=== PATIENT | female | born 1990 | race Caucasian/White ===

== ENCOUNTER 2016-11-25 20:28 | Emergency (ER) | payer BC, MEDICAID ==
[2016-11-25 20:46] VITALS: BP 121/81
[2016-11-25] MEDS ORDERED: diphenhydrAMINE 50 MG/ML SDV IM ONE (20:50)
[2016-11-25] MEDS ORDERED: Ketorolac 60 MG/2 ML SDV IM ONE (20:51)
--- NOTE | 2016-11-28 07:53 | ER ---
Date of Service: 11/25/2016 SUBJECTIVE: Irina presents to the emergency room with complaints of migraine headache. She states this is similar to migraines that she has experienced in the past. She states that she states that she woke with a migraine early this morning. She states that she has not had any recent head trauma. She states again that the quality of this migraine is similar to what she has experienced in the past. She states that she only gets maybe 1 or 2 migraines a month and is currently not on any rescue medications for her migraine headaches. PAST MEDICAL HISTORY: Migraines. MEDICATIONS: Tylenol with caffeine for migraines. ALLERGIES: Sulfa. REVIEW OF SYSTEMS: Denies any numbness or tingling in her extremities. No difficulties with speech or ambulation. No blurred vision. She states that she does have photophobia. She again woke with a migraine so was unable to assess if she did have a pre migraine aura. Denies any neck stiffness. PHYSICAL EXAMINATION: General: This is a 25-year-old female patient, in no acute distress. Vital Signs: Blood pressure is 121/81, pulse rate is 98, temperature is 37.5, pulse or O2 saturations 98%, respiratory rate is 20. Skin: Warm, pink, and dry. HEENT: Head is normocephalic, atraumatic. Eyes, PERRLA. Extraocular movements are intact. Ears, TMs are clear. Mouth, oral mucosa is moist. Lungs: Clear to auscultation. Heart: Regular rate and rhythm. Abdomen: Soft and nontender. There is no hepatosplenomegaly or masses noted. Extremities: Without edema. Neurologic: She is alert and oriented, answers all questions appropriately. Her speech is fluent. Her gait is within normal limits. She has no pronator drift. Romberg is negative. She has 5/5 strength in both her upper and lower extremities. Patellar and brachioradialis reflexes are 2+. No other focal neurologic symptoms noted. EMERGENCY ROOM COURSE: The patient was given injection of Thorazine 25 mg, Benadryl 50 mg, and Toradol 60 mg IM. She was observed for approximately a 0.5 hour and stated that her migraine was improving significantly. She remained stable my care in the emergency room. ASSESSMENT: Migraine headache. PLAN: The patient will be discharged. I did give her a prescription for some Imitrex to see if this does help as an abortive medication. She was instructed to take 50 mg at onset of migraine and repeat once in 1 hour if no resolution of her symptoms. All questions were MWK: 11/26/2016 07:18:27 MODL: 11/26/2016 11:53:46 /[id number]
== END 2016-11-25 21:45 | disposition home or self-care (01) ==
LOC: VM.ED 20:28
DX: G43.909 Migraine, unspecified, not intractable, without status migrainosus (principal); Z88.2 Allergy status to sulfonamides
CPT/HCPCS: 96372; 99283; J1200; J1885; J3230

== ENCOUNTER 2017-09-14 06:51 | Emergency (ER) | payer BC, MEDICAID ==
[2017-09-14 06:58] VITALS: BP 134/74
[2017-09-14] MEDS ORDERED: Sodium Chloride 0.9% 10 ML Syringe FLUSH PRN (07:11)
[2017-09-14] MEDS ORDERED: Sodium Chloride 0.9% 1,000 ML IV ONE (07:12)
[2017-09-14] MEDS ORDERED: Ondansetron 4 MG/2 ML SDV IVPUSH ONE (07:12)
[2017-09-14] MEDS ORDERED: HYDROmorphone 1 MG/ML Syringe IVPUSH ONE (07:12)
[2017-09-14] MEDS ORDERED: Ketorolac 30 MG/ML SDV IVPUSH ONE (07:44)
[2017-09-14 07:54] LABS: CHLORIDE,CL 107 mmol/L (98-107); SODIUM,NA 140 mmol/L (136-145)
[2017-09-14] MEDS ORDERED: Iopamidol 612 MG/ML 100 ML Bottle IVPUSH ONE (08:08)
--- NOTE | 2017-09-14 14:51 | EDM.PDOC ---
ED HPI GENERAL MEDICAL PROBLEM - General Chief Complaint: General Stated Complaint: right upper abd pain Time Seen by Provider: 09/14/17 07:00 Source of Information: Reports: Patient History Limitations: Reports: No Limitations - History of Present Illness INITIAL COMMENTS - FREE TEXT/NARRATIVE: Pt. presents to ER with complaints of epigastric/RUQ abdominal pain. Pt. states that she woke with the pain this AM. she states that she has not been experiencing any fever or chills. No N/V/D. She has had her gallbladder removed. She denies any substernal chest pain or shortness of breath. Pt. has not taken anything for the pain. She denies any jaundice. No bloody stools. Pt. was started on amoxicillin and solu medrol last week at [facility]. Onset: Today Onset Date: 09/14/17 Duration: Constant Location: Reports: Abdomen Quality: Reports: Ache, Sharp Severity: Severe Associated Symptoms: Reports: Nausea/Vomiting Right Upper Abdomen Pain Score (Numeric/FACES): 1 - Related Data Allergies Allergy/AdvReac Type Severity Reaction Status Date / Time Sulfa (Sulfonamide Allergy Rash Verified 09/14/17 06:52 Antibiotics) Home Meds: Home Meds Acetaminophen [Tylenol Extra Strength] 1,000 mg PO Q6H PRN 09/14/17 [History] Amoxicillin/Clavulanate K [Augmentin 500-125 MG] 1 tab PO BID 09/14/17 [History] Benzonatate [Tessalon Perle] 100 mg PO TID 09/14/17 [History] Codeine/guaiFENesin [guaiFENesin-Codeine Syrup] 5 ml PO TID PRN 09/14/17 [ History] Etonogestrel [Nexplanon] 68 mg SQ ASDIRECTED 09/14/17 [History] predniSONE [Prednisone] 1 tab PO TID 09/14/17 [History] Past Medical History [employer] History: Reports: Neurological History: Reports: Migraines - Past Surgical History GI Surgical History: Reports: Cholecystectomy Female Surgical History: Reports: Section Social & Family History - Family History Family Medical History: Noncontributory - Tobacco Use Smoking Status *Q: Former Smoker Used Tobacco, but Quit: Yes Month Tobacco Last Used: ? - Recreational Drug Use Recreational Drug Use: No ED ROS GENERAL - Review of Systems Review Of Systems: See Below Constitutional: Reports: No Symptoms HEENT: Reports: No Symptoms Respiratory: Reports: No Symptoms Cardiovascular: Reports: No Symptoms GI/Abdominal: Reports: Abdominal Pain : Reports: No Symptoms Musculoskeletal: Reports: No Symptoms Skin: Reports: No Symptoms Neurological: Reports: No Symptoms Psychiatric: Reports: No Symptoms Hematologic/Lymphatic: Reports: No Symptoms Immunologic: Reports: No Symptoms ED EXAM, GENERAL - Physical Exam Exam: See Below Exam Limited By: No Limitations General Appearance: Alert, WD/WN, No Apparent Distress Eye Exam: Bilateral Eye: EOMI, Normal Fundi, Normal Inspection, PERRL Ears: Normal External Exam, Normal Canal, Hearing Grossly Normal, Normal TMs Nose: Normal Inspection, Normal Mucosa, No Blood Throat/Mouth: Normal Inspection, Normal Lips, Normal Teeth, Normal Gums, Normal Oropharynx, Normal Voice, No Airway Compromise Head: Atraumatic, Normocephalic Neck: Normal Inspection, Supple, Non-Tender, Full Range of Motion Respiratory/Chest: No Respiratory Distress, Lungs Clear, Normal Breath Sounds, No Accessory Muscle Use, Chest Non-Tender Cardiovascular: Normal Peripheral Pulses, Regular Rate, Rhythm, No Edema, No Gallop, No JVD, No Murmur, No Rub Peripheral Pulses: 2+: Radial (L), Radial (R) GI/Abdominal: Normal Bowel Sounds, Soft, Non-Tender, No Organomegaly, No Distention, No Abnormal Bruit, No Mass (Female) Exam: Deferred Rectal (Female) Exam: Deferred Back Exam: Normal Inspection, Full Range of Motion, NT Extremities: Normal Inspection, Normal Range of Motion, Non-Tender, Normal Capillary Refill, No Pedal Edema Neurological: Alert, Oriented, CN II-XII Intact, Normal Cognition, Normal Gait, Normal Reflexes, No Motor/Sensory Deficits Psychiatric: Normal Affect, Normal Mood Skin Exam: Warm, Dry, Intact, Normal Color, No Rash Lymphatic: No Adenopathy Course - Vital Signs Last Recorded V/S: Last Vital Signs Temp 36.0 C 09/14/17 06:54 Pulse 105 H 09/14/17 06:54 Resp 18 09/14/17 06:54 BP 134/74 09/14/17 06:54 Pulse Ox 99 09/14/17 06:54 - Orders/Labs/Meds Orders: Active Orders 24 hr Category Date Time Status Chest Abdomen Pelvis w Cont [CT] Stat Exams 09/14/17 07:58 Taken GGT [REF] Stat Lab 09/14/17 07:25 Received HCV RNA QUANT PCR REFL GENOTYP [REF] Stat Lab 09/14/17 07:25 Received HEPATITIS B SURFACE ANTIGEN [REF] Stat Lab 09/14/17 07:25 Received Peripheral IV Insertion Adult [OM.PC] Routine Oth 09/14/17 07:12 Ordered Labs: Laboratory Tests 09/14/17 09/14/17 09/14/17 Range/Units 07:25 07:25 07:25 WBC 11.0 H (4.0-10.0) x10^3/uL RBC 4.38 (4.00-5.50) x10^6/uL Hgb 13.0 (12.0-16.0) g/dL Hct 38.4 (33.0-47.0) % MCV 87.7 (78.0-93.0) fL MCH 29.7 (26.0-32.0) pg MCHC 33.9 (32.0-36.0) g/dL RDW Coeff of Momo 12.8 (10.0-15.0) % Plt Count 263 (130-400) x10^3/uL Neut % (Auto) 70.3 (50.0-80.0) % Lymph % (Auto) 18.0 L (25.0-50.0) % Stafford % (Auto) 10.4 (2.0-11.0) % Eos % (Auto) 0.9 (0.0-4.0) % Baso % (Auto) 0.4 (0.2-1.2) % PT 10.3 (9.8-11.8) SEC INR 1.0 L (2.0-3.5) Sodium 140 (136-145) mmol/L Potassium 3.8 (3.5-5.1) mmol/L Chloride 107 (98-107) mmol/L Carbon Dioxide 21 (21-32) mmol/L BUN 20 H (7-18) mg/dL Creatinine 0.7 (0.55-1.02) mg/dL Est Cr Clr Drug Dosing 110.55 mL/min Estimated GFR (MDRD) > 60 Glucose 87 (74-106) mg/dL Lactic Acid (0.4-2.0) mmol/L Calcium 8.7 (8.5-10.1) mg/dL Corrected Calcium 8.70 (8.5-10.1) mg/dL Total Bilirubin 0.8 (0.2-1.0) mg/dL AST 182 H (15-37) U/L ALT 137 H (14-59) U/L Alkaline Phosphatase 69 (46-116) U/L C-Reactive Protein < 0.2 (<=0.9) mg/dL Total Protein 7.0 (6.4-8.2) g/dL Albumin 4.0 (3.4-5.0) g/dL Globulin 3.0 Albumin/Globulin Ratio 1.33 Amylase (25-115) U/L Lipase (73-393) U/L POC Urine HCG, Qual 09/14/17 09/14/17 09/14/17 Range/Units 07:25 07:25 08:04 WBC (4.0-10.0) x10^3/uL RBC (4.00-5.50) x10^6/uL Hgb (12.0-16.0) g/dL Hct (33.0-47.0) % MCV (78.0-93.0) fL MCH (26.0-32.0) pg MCHC (32.0-36.0) g/dL RDW Coeff of Momo (10.0-15.0) % Plt Count (130-400) x10^3/uL Neut % (Auto) (50.0-80.0) % Lymph % (Auto) (25.0-50.0) % Stafford % (Auto) (2.0-11.0) % Eos % (Auto) (0.0-4.0) % Baso % (Auto) (0.2-1.2) % PT (9.8-11.8) SEC INR (2.0-3.5) Sodium (136-145) mmol/L Potassium (3.5-5.1) mmol/L Chloride (98-107) mmol/L Carbon Dioxide (21-32) mmol/L BUN (7-18) mg/dL Creatinine (0.55-1.02) mg/dL Est Cr Clr Drug Dosing mL/min Estimated GFR (MDRD) Glucose (74-106) mg/dL Lactic Acid 0.6 (0.4-2.0) mmol/L Calcium (8.5-10.1) mg/dL Corrected Calcium (8.5-10.1) mg/dL Total Bilirubin (0.2-1.0) mg/dL AST (15-37) U/L ALT (14-59) U/L Alkaline Phosphatase (46-116) U/L C-Reactive Protein (<=0.9) mg/dL Total Protein (6.4-8.2) g/dL Albumin (3.4-5.0) g/dL Globulin Albumin/Globulin Ratio Amylase 41 (25-115) U/L Lipase 111 (73-393) U/L POC Urine HCG, Qual Negative Meds: Medications Discontinued Medications Generic Name Dose Route Start Last Admin Trade Name Freq PRN Reason Stop Dose Admin Hydromorphone HCl 1 mg 09/14/17 07:12 09/14/17 07:25 Dilaudid IVPUSH 09/14/17 07:13 1 mg ONETIME ONE Administration Sodium Chloride 1,000 mls @ 1,000 mls/hr 09/14/17 07:12 09/14/17 07:25 Normal Saline IV 09/14/17 08:11 1,000 mls/hr .BOLUS ONE Administration Iopamidol 100 ml 09/14/17 08:08 09/14/17 08:27 Isovue-300 (61%) IVPUSH 09/14/17 08:09 100 ml ONETIME ONE Administration Ketorolac Tromethamine 30 mg 09/14/17 07:44 09/14/17 07:50 Toradol IVPUSH 09/14/17 07:45 30 mg ONETIME ONE Administration Ondansetron HCl 4 mg 09/14/17 07:12 09/14/17 07:26 Zofran IVPUSH 09/14/17 07:13 4 mg ONETIME ONE Administration Sodium Chloride 10 ml 09/14/17 07:11 Saline Flush FLUSH ASDIRECTED PRN Keep Vein Open - Radiology Interpretation Free Text/Narrative:: CT abd./pelvis with contrast was obtained. No evidence of hepatobiliary pathology noted. There was evidence of sm. amount of free fluid in the pelvis as well as cysts on the ovaries. Departure - Departure Time of Disposition: 10:15 Disposition: Home, Self-Care 01 Condition: Good Clinical Impression: LFT elevation - Discharge Information Referrals: PCP,None [Primary Care Provider] - Forms: ED Department Discharge Additional Instructions: I spoke with Florecita Lawrence. I will see to it that she gets copies of your send out labs. You have been set up for an abdominal ultrasound on Monday. Stop the amoxicllin, as this could be causing the problem as well. Do not take any acetaminophen (tylenol) Oxycodone 5mg every 4-6 hours as needed for severe pain. May also take ibuprofen 600mg every 6 hours. Send out labs consisting of HbSAG, HCV, GGT are pending. - My Orders Last 24 Hours: My Active Orders 09/14/17 07:12 Peripheral IV Insertion Adult [OM.PC] Routine 09/14/17 07:25 GGT [REF] Stat HCV RNA QUANT PCR REFL GENOTYP [REF] Stat HEPATITIS B SURFACE ANTIGEN [REF] Stat 09/14/17 07:58 Chest Abdomen Pelvis w Cont [CT] Stat - Assessment/Plan Last 24 Hours: My Active Orders 09/14/17 07:12 Peripheral IV Insertion Adult [OM.PC] Routine 09/14/17 07:25 GGT [REF] Stat HCV RNA QUANT PCR REFL GENOTYP [REF] Stat HEPATITIS B SURFACE ANTIGEN [REF] Stat 09/14/17 07:58 Chest Abdomen Pelvis w Cont [CT] Stat
== END 2017-09-14 10:15 | disposition home or self-care (01) ==
LOC: VM.ED 06:51
DX: R79.89 Other specified abnormal findings of blood chemistry (principal); Z88.2 Allergy status to sulfonamides; Z87.891 Personal history of nicotine dependence
CPT/HCPCS: 36415; 71260; 74177; 80053; 81025; 82150; 82977; 83605; 83690; 85025; 85610; 86140; 87340; 96361; 96374; 96375; 99284; J1170; J1885; J2405; J7030; Q9967; 87522

== ENCOUNTER 2023-05-26 09:21 | Emergency (ER) | payer BC, MEDICAID ==
[2023-05-26] MEDS ORDERED: Sodium Chloride 0.9% 10 ML Syringe FLUSH PRN (09:42)
[2023-05-26] MEDS: Lactated Ringers 1,000 ML IV ONE (10:06)
[2023-05-26 10:07] LABS: BASOPHILS PERCENT AUTO 0.4 % (0.2-1.2); EOSINOPHILS PERCENT AUTO 0.4 % (0.0-4.0); HEMATOCRIT 38.8 % (33.0-47.0); HEMOGLOBIN 13.2 g/dL (12.0-16.0); IMMATURE GRAN ABSOLUTE AUTO 0.01 x10^3/uL (0.00-0.07); LYMPHOCYTES ABSOLUTE AUTO 1.1 x10^3/uL (1.0-4.8); MEAN CORPUSCULAR HEMOGLOBIN 30.3 pg (26.0-32.0); MEAN CORPUSCULAR VOLUME 89.2 fL (78.0-93.0); MONOCYTES ABSOLUTE AUTO 0.8 x10^3/uL (0.0-0.8); MONOCYTES PERCENT AUTO 6.9 % (2.0-11.0); NEUTROPHILS ABSOLUTE AUTO 9.2 x10^3/uL (1.8-7.7); NEUTROPHILS PERCENT AUTO 82.2 % (50.0-80.0); PLATELET COUNT,PLT 315 x10^3/uL (130-400); RED BLOOD CELL COUNT 4.35 x10^6/uL (4.00-5.50); WHITE BLOOD CELL COUNT,WBC 11.2 x10^3/uL (4.0-10.0)
[2023-05-26] MEDS: Ketorolac 15 MG/ML SDV IVPUSH ONE (10:07)
[2023-05-26] MEDS: HYDROmorphone 0.5 MG/0.5 ML Syringe IVPUSH ONE (10:07)
[2023-05-26] MEDS: Ondansetron 4 MG/2 ML SDV IVPUSH ONE (10:10)
[2023-05-26] MEDS: Ampicillin/Sulbactam 3 GM Vial IVPUSH ONE (10:20)
[2023-05-26 10:26] LABS: A/G RATIO 1.22; ALANINE AMINOTRANSFERASE,ALT 27 U/L (14-59); ALBUMIN 3.9 g/dL (3.4-5.0); ALKALINE PHOSPHATASE 66 U/L (46-116); ANION GAP 14.9 mmol/L (5-15); ASPARTATE AMNIOTRANSFERASE,AST 17 U/L (15-37); BILIRUBIN TOTAL 1.6 mg/dL (0.2-1.0); BLOOD UREA NITROGEN,BUN 12 mg/dL (7-18); C-REACTIVE PROTEIN 1.58 mg/dL (<=0.30); CALCIUM 8.9 mg/dL (8.5-10.1); CARBON DIOXIDE,CO2 26 mmol/L (21-32); CHLORIDE,CL 104 mmol/L (98-107); CREATININE 0.7 mg/dL (0.55-1.02); ESTIMATED GFR 119 mL/min (>=60); GLUCOSE RANDOM 84 mg/dL (70-99); MAGNESIUM 1.9 mg/dL (1.8-2.4); POTASSIUM,K 3.9 mmol/L (3.5-5.1); PROTEIN TOTAL,TP 7.1 g/dL (6.4-8.2); SODIUM,NA 141 mmol/L (136-145)
[2023-05-26 10:28] LABS: LACTIC ACID 0.5 mmol/L (0.4-2.0)
[2023-05-26] MEDS: diphenhydrAMINE 50 MG/ML SDV IVPUSH ONE (10:43)
[2023-05-26 12:54] VITALS: BP 112/72; PULSE 88
[2023-05-26] MEDS ORDERED: Ampicillin/Sulbactam Na 3 GM in Sodium Chloride 0.9% 100 ML IV ONE ×2 (15:45→21:00)
[2023-05-27] MEDS ORDERED: Ampicillin/Sulbactam Na 3 GM in Sodium Chloride 0.9% 100 ML IV ONE (03:00)
== END 2023-05-26 11:35 | disposition home or self-care (01) ==
LOC: VM.ED 09:21
DX: K04.7 Periapical abscess without sinus (principal); Z88.2 Allergy status to sulfonamides; Z98.890 Other specified postprocedural states
CPT/HCPCS: 36415; 80053; 83605; 83735; 85025; 86140; 87040; 96361; 96374; 96375; 96376; 99283-25; J0295; J1170; J1200; J1885; J2405; J7120

== ENCOUNTER 2023-05-27 08:47 | Inpatient (IN) | payer MEDICAID ==
[2023-05-27] MEDS ORDERED: Iopamidol 612 MG/ML 100 ML Bottle IVPUSH ONE ×2 (08:54→11:28)
[2023-05-27 09:05] LABS: BASOPHILS PERCENT AUTO 0.5 % (0.2-1.2); EOSINOPHILS ABSOLUTE AUTO 0.1 x10^3/uL (0.0-0.5); EOSINOPHILS PERCENT AUTO 1.1 % (0.0-4.0); LYMPHOCYTES ABSOLUTE AUTO 0.8 x10^3/uL (1.0-4.8); LYMPHOCYTES PERCENT AUTO 13.3 % (25.0-50.0); MEAN CORPUSCULAR HEMOGLOBIN 29.8 pg (26.0-32.0); MEAN CORPUSCULAR HGB CONC 33.3 g/dL (32.0-36.0); MEAN CORPUSCULAR VOLUME 89.3 fL (78.0-93.0); MONOCYTES ABSOLUTE AUTO 0.6 x10^3/uL (0.0-0.8); MONOCYTES PERCENT AUTO 9.6 % (2.0-11.0); NEUTROPHILS ABSOLUTE AUTO 4.7 x10^3/uL (1.8-7.7); NEUTROPHILS PERCENT AUTO 75.5 % (50.0-80.0); PLATELET COUNT,PLT 265 x10^3/uL (130-400); RED BLOOD CELL COUNT 4.03 x10^6/uL (4.00-5.50); WHITE BLOOD CELL COUNT,WBC 6.2 x10^3/uL (4.0-10.0)
[2023-05-27] MEDS ORDERED: Ampicillin/Sulbactam 3 GM Vial IVPUSH ONE (09:08)
[2023-05-27 09:30] LABS: LACTIC ACID 0.5 mmol/L (0.4-2.0)
[2023-05-27 09:39] LABS: A/G RATIO 1.03; ALANINE AMINOTRANSFERASE,ALT 393 U/L (14-59); ALBUMIN 3.3 g/dL (3.4-5.0); ALKALINE PHOSPHATASE 146 U/L (46-116); ASPARTATE AMNIOTRANSFERASE,AST 273 U/L (15-37); BILIRUBIN TOTAL 3.6 mg/dL (0.2-1.0); BLOOD UREA NITROGEN,BUN 11 mg/dL (7-18); C-REACTIVE PROTEIN 5.48 mg/dL (<=0.30); CALCIUM 8.4 mg/dL (8.5-10.1); CARBON DIOXIDE,CO2 24 mmol/L (21-32); CHLORIDE,CL 105 mmol/L (98-107); CREATININE 0.7 mg/dL (0.55-1.02); GLUCOSE RANDOM 94 mg/dL (70-99); POTASSIUM,K 4.1 mmol/L (3.5-5.1); PROTEIN TOTAL,TP 6.5 g/dL (6.4-8.2); SODIUM,NA 140 mmol/L (136-145)
[2023-05-27 09:47] LABS: ANION GAP 15.1 mmol/L (5-15); ESTIMATED GFR 119 mL/min (>=60)
[2023-05-27] MEDS ORDERED: HYDROmorphone 0.5 MG/0.5 ML Syringe IVPUSH ONE (09:53)
[2023-05-27] MEDS ORDERED: Sodium Chloride 0.9% 1,000 ML IV SCH (11:30)
[2023-05-27 11:36] LABS: PROTHROMBIN TIME 10.4 SEC (9.5-12.2); PTT,PARTIAL THROMBOPLSTIN TIME 27.9 SEC (23.6-33.6)
[2023-05-27] MEDS ORDERED: Ibuprofen 200 MG Tab PO PRN (12:55)
[2023-05-27] MEDS ORDERED: Ondansetron 4 MG Tab.DIS PO PRN (12:55)
[2023-05-27] MEDS: Sodium Chloride 0.9% 1,000 ML IV SCH ×2 (13:30→21:18)
[2023-05-27] MEDS: HYDROmorphone 1 MG/ML Syringe IVPUSH PRN ×3 (13:31→21:07)
[2023-05-27] MEDS: Ibuprofen 200 MG Tab PO SCH ×2 (14:54→21:03)
[2023-05-27] MEDS: Ampicillin/Sulbactam Na 3 GM in Sodium Chloride 0.9% 100 ML IV SCH ×2 (14:55→21:11)
[2023-05-27] MEDS: Ondansetron 4 MG/2 ML SDV IV PRN ×2 (16:52→21:01)
[2023-05-27] MEDS ORDERED: Promethazine 12.5 MG in Sodium Chloride 0.9% 100 ML IV PRN (19:19)
[2023-05-27] MEDS ORDERED: HYDROmorphone 1 MG/ML Syringe IVPUSH ONE (22:43)
[2023-05-27] MEDS: Ketorolac 30 MG/ML SDV IVPUSH PRN (22:57)
[2023-05-28] MEDS ORDERED: fentaNYL 50 MCG/ML SDV IVPUSH PRN (00:39)
[2023-05-28] MEDS: Ibuprofen 200 MG Tab PO SCH ×4 (02:22→20:08)
[2023-05-28] MEDS: Ampicillin/Sulbactam Na 3 GM in Sodium Chloride 0.9% 100 ML IV SCH ×4 (02:30→22:00)
[2023-05-28] MEDS: HYDROmorphone 1 MG/ML Syringe IVPUSH PRN ×2 (05:25→11:34)
[2023-05-28] MEDS: Ondansetron 4 MG/2 ML SDV IV PRN (05:34)
[2023-05-28] MEDS: Sodium Chloride 0.9% 1,000 ML IV SCH ×2 (06:00→16:21)
[2023-05-28] MEDS: Ketorolac 30 MG/ML SDV IVPUSH PRN (06:52)
[2023-05-28 08:43] LABS: BASOPHILS PERCENT AUTO 0.5 % (0.2-1.2); EOSINOPHILS ABSOLUTE AUTO 0.1 x10^3/uL (0.0-0.5); HEMATOCRIT 33.3 % (33.0-47.0); HEMOGLOBIN 11.3 g/dL (12.0-16.0); IMMATURE GRAN ABSOLUTE AUTO 0.01 x10^3/uL (0.00-0.07); LYMPHOCYTES ABSOLUTE AUTO 1.2 x10^3/uL (1.0-4.8); LYMPHOCYTES PERCENT AUTO 22.3 % (25.0-50.0); MEAN CORPUSCULAR HEMOGLOBIN 30.5 pg (26.0-32.0); MEAN CORPUSCULAR HGB CONC 33.9 g/dL (32.0-36.0); MONOCYTES ABSOLUTE AUTO 0.5 x10^3/uL (0.0-0.8); MONOCYTES PERCENT AUTO 8.4 % (2.0-11.0); NEUTROPHILS ABSOLUTE AUTO 3.7 x10^3/uL (1.8-7.7); NEUTROPHILS PERCENT AUTO 66.6 % (50.0-80.0); PLATELET COUNT,PLT 244 x10^3/uL (130-400); WHITE BLOOD CELL COUNT,WBC 5.6 x10^3/uL (4.0-10.0)
[2023-05-28 08:53] LABS: ALBUMIN 2.8 g/dL (3.4-5.0); BILIRUBIN TOTAL 1.2 mg/dL (0.2-1.0); C-REACTIVE PROTEIN 3.53 mg/dL (<=0.30); CALCIUM 7.9 mg/dL (8.5-10.1); CREATININE 0.6 mg/dL (0.55-1.02); EST CRCL DRUG DOSING (CG) 122.25 mL/min; POTASSIUM,K 3.7 mmol/L (3.5-5.1); PROTEIN TOTAL,TP 5.6 g/dL (6.4-8.2)
[2023-05-28 08:58] LABS: ANION GAP 13.7 mmol/L (5-15)
[2023-05-28] MEDS ORDERED: oxyCODONE 5 MG Tab PO PRN (11:26)
[2023-05-29] MEDS: Ibuprofen 200 MG Tab PO SCH ×2 (01:07→06:32)
[2023-05-29] MEDS: Ampicillin/Sulbactam Na 3 GM in Sodium Chloride 0.9% 100 ML IV SCH ×2 (02:35→09:16)
[2023-05-29 07:55] LABS: A/G RATIO 0.93; ALBUMIN 2.7 g/dL (3.4-5.0); BILIRUBIN TOTAL 0.6 mg/dL (0.2-1.0); C-REACTIVE PROTEIN 1.83 mg/dL (<=0.30); CALCIUM 8.1 mg/dL (8.5-10.1); CREATININE 0.6 mg/dL (0.55-1.02); EST CRCL DRUG DOSING (CG) 122.25 mL/min; POTASSIUM,K 3.9 mmol/L (3.5-5.1); PROTEIN TOTAL,TP 5.6 g/dL (6.4-8.2)
[2023-05-29 08:16] LABS: ANION GAP 10.9 mmol/L (5-15)
[2023-05-29 08:23] LABS: BASOPHILS PERCENT AUTO 0.6 % (0.2-1.2); EOSINOPHILS ABSOLUTE AUTO 0.1 x10^3/uL (0.0-0.5); EOSINOPHILS PERCENT AUTO 2.7 % (0.0-4.0); HEMATOCRIT 34.5 % (33.0-47.0); HEMOGLOBIN 11.3 g/dL (12.0-16.0); IMMATURE GRAN ABSOLUTE AUTO 0.01 x10^3/uL (0.00-0.07); LYMPHOCYTES ABSOLUTE AUTO 1.1 x10^3/uL (1.0-4.8); MEAN CORPUSCULAR HEMOGLOBIN 30.2 pg (26.0-32.0); MEAN CORPUSCULAR HGB CONC 32.8 g/dL (32.0-36.0); MEAN CORPUSCULAR VOLUME 92.2 fL (78.0-93.0); MONOCYTES ABSOLUTE AUTO 0.5 x10^3/uL (0.0-0.8); MONOCYTES PERCENT AUTO 9.1 % (2.0-11.0); NEUTROPHILS ABSOLUTE AUTO 3.4 x10^3/uL (1.8-7.7); NEUTROPHILS PERCENT AUTO 66.4 % (50.0-80.0); PLATELET COUNT,PLT 178 x10^3/uL (130-400); RED BLOOD CELL COUNT 3.74 x10^6/uL (4.00-5.50); WHITE BLOOD CELL COUNT,WBC 5.1 x10^3/uL (4.0-10.0)
[2023-05-29 10:36] VITALS: BP 120/77; PULSE 68
== END 2023-05-29 11:20 | disposition home or self-care (01) | DRG 158 ==
LOC: VM.ED 08:47 → VM.MS 12:22
PROVIDERS: ADMIT Family Medicine; ATTEND Family Medicine
DX: K04.7 Periapical abscess without sinus (principal); L03.211 Cellulitis of face; K02.9 Dental caries, unspecified; E86.0 Dehydration; R74.01 Elevation of levels of liver transaminase levels; G43.909 Migraine, unspecified, not intractable, without status migrainosus; Z88.2 Allergy status to sulfonamides; Z90.49 Acquired absence of other specified parts of digestive tract; Z98.891 History of uterine scar from previous surgery; Z79.899 Other long term (current) drug therapy
CPT/HCPCS: 36415; 70491; 74177; 80053; 83605; 85025; 85610; 85730; 86140; 96374; 96375; 99284; J0295; J1170; J7030; Q9967 ×2; A9270-GY; J1885; J2405; J2550; J3490

== ENCOUNTER 2024-02-18 10:10 | Emergency (ER) | payer SELFPAY ==
[2024-02-18 10:24] VITALS: BP 116/72; PULSE 100
== END 2024-02-18 10:47 | disposition home or self-care (01) ==
LOC: VM.ED 10:10
DX: S90.32XA Contusion of left foot, initial encounter (principal); Z88.2 Allergy status to sulfonamides; Z90.49 Acquired absence of other specified parts of digestive tract; W17.89XA Other fall from one level to another, initial encounter
CPT/HCPCS: 73630-LT; 99283